=== PATIENT | female | born 1960 | race Caucasian/White ===

== ENCOUNTER 2021-04-18 11:53 | Emergency (ER) | payer OTHER ==
[~2021-04-18] VITALS: Ht 167.6 cm; Wt 75.5 kg
[2021-04-18 12:05] VITALS: BP 148/75
[2021-04-18] MEDS ORDERED: PRED20TA PO (12:32)
--- NOTE | 2021-04-18 12:32 | PHYS DOC ---
Past History Past Surgical History: No Surgical History Alcohol Use: None General Adult EDM: Chief Complaint: SKIN RASH/ABSCESS HPI: HPI: Patient is a 60-year-old female coming in for pruritic rash to arms, legs, and torso. Patient travels frequently between here in [place] and is unsure of where she might of come in contact with irritant. States she has been itching and was seen at another facility and given a shot of Solu-Medrol and was told to take Benadryl. Patient does not want take Benadryl because it makes her sleepy and she drives frequently. Review of Systems: Review of Systems: All other systems within normal limits except for as noted in the HPI Allergies: Allergies: Allergies Coded Allergies Type Severity Reaction Last Updated Verified No Known Drug Allergies 04/18/21 No Physical Exam: PE: Constitutional: Well developed, well nourished, no acute distress, non-toxic appearance. [] HENT: Normocephalic, atraumatic, bilateral external ears normal, nose normal. [] Eyes: PERRLA, conjunctiva normal, no discharge. [] Neck: No rigidity, supple, no stridor. [] Cardiovascular: Regular rate and rhythm, brisk cap refill [] Lungs & Thorax: Non labored symmetric respirations, no tachypnea or respiratory distress [] Abdomen: Soft, nondistended. Skin: Warm, dry, no erythema, scattered papules with excoriations. Back: Unremarkable Extremities: No deformities, range of motion grossly intact, no lower extremity edema [] Neurologic: Alert and oriented X 3, no focal deficits noted. [] Psychologic: Affect normal, judgement normal, mood normal. [] Current Patient Data: Vital Signs: Vital Signs Date Time Temp Pulse Resp B/P (MAP) Pulse Ox O2 Delivery O2 Flow Rate FiO2 04/18/21 12:05 98.5 90 16 148/75 99 Room Air EKG: EKG: [] Radiology/Procedures: Radiology/Procedures: [] Heart Score: C/O Chest Pain: No Risk Factors: Risk Factors: DM, Current or recent (<one month) smoker, HTN, HLP, family history of CAD, obesity. Risk Scores: Score 0 - 3: 2.5% MACE over next 6 weeks - Discharge Home Score 4 - 6: 20.3% MACE over next 6 weeks - Admit for Clinical Observation Score 7 - 10: 72.7% MACE over next 6 weeks - Early Invasive Strategies Course & Med Decision Making: Course & Med Decision Making Pertinent Labs and Imaging studies reviewed. (See chart for details) [] Adin Disclaimer: Adin Disclaimer: This electronic medical record was generated, in whole or in part, using a voice recognition dictation system. Departure Departure: Impression: Primary Impression: Contact dermatitis Disposition: HOME / SELF CARE / HOMELESS Condition: STABLE Referrals: PCP,UNKNOWN (PCP) Patient Instructions: Contact Dermatitis Additional Instructions: Take [id number] antihistamine to help with itching, recommend Sarah or Zyrtec. And use Zanfel wash to to help remove any toxin. Scripts Prednisone (PREDNISONE) 20 Mg Tablet 20 MG PO UD for steroid for 21 Days, #42 TAB 60 mg x 7 days, 40 mg x 7 days, 20 mg, 7 days Prov: ANTIONE LUNDBERG MD 04/18/21 ANTIONE LUNDBERG MD Apr 18, 2021 12:32
== END 2021-04-18 12:35 | disposition home or self-care (01) ==
LOC: ER 11:53
DX: L25.9 Unspecified contact dermatitis, unspecified cause (principal)
CPT/HCPCS: 99283